=== PATIENT | female | born 1930 | race Caucasian/White ===

== ENCOUNTER → 2016-08-26 | Day surgery (SDC) | payer MEDICARE, BC ==
[~2016-08-26] MED LIST: ALOE1CAP PO; ALPH1CAP PO; AMLO2.5T PO; APIX5TAB PO; BENA10TA PO; CALC500T42 PO; CITA10TA4 PO; GLUC100017 PO; GLUCTAB PO; IOHEXOL 180 MG/ML 20 ML VIAL (for RAD DIAG) EPIDURAL ONE; L-ME1CAP2 PO; LIDOCAINE HCL 1% PF 30 ML VIAL EPI ONE; NITR0.4S SL; OMEGCAP19 PO; PROB1TAB PO; PROP10TA6 PO; PROP150T PO; PROPOFOL 200 MG/20 ML AMP IV ONE; PROV10TA PO; TRIAMCINOLONE ACETONIDE 40 MG/ML VIAL NB ONE; VITA100018 PO; VITA10007 PO; ZINC50TA PO; ZOCO40TA PO
--- NOTE | 2016-08-27 09:32 | M6 ---
cc: ZORAIDA MEJIA M.D. DATE 08/26/2016 DATE OF 1930 PROCEDURE Fluoroscopically guided left L3-4 and left L4-5 transforaminal epidural steroid injection. History and physical was completed and signed. Consent was signed. Procedure site was marked. Medications were listed and reconciled. Pain score was recorded. Allergies were noted. Time out was taken. Fluoroscopy time was recorded where applicable. Sedation was administered or directed by Dr. Mejia. The patient was given oxygen. The patient was monitored by a registered nurse. Total procedure time was greater than 15 minutes. PROCEDURE NOTE An IV was started. Blood pressure cuff, pulse oximeter and EKG were applied. The patient was placed in the prone position on a Reg table, sedated with small amounts of Versed and propofol titrated to effect. Vital signs were monitored and remained stable throughout the procedure. The patient remained responsive throughout the procedure. The lumbar area was scrubbed with antimicrobial solution, prepped with 10% Betadine solution, and draped with sterile drapes. Fluoroscopy was used in both the AP and lateral projections to clearly visualize the left L3-4 and left L4-5 neural foramen. Then separate sterile 22 gauge, 3 1/2-inch Chiba needles were advanced under fluoroscopic guidance into the dorsal-most aspect of each foramen. There was negative aspiration for blood or CSF. There were no reported paresthesias by the patient. There was no washout of 2 mL of Omnipaque. Then after waiting approximately 60 seconds, the patient was slowly given 3 mL of 1% Xylocaine, 3 mL of Omnipaque and 40 mg of Kenalog at each location. W. Heriberto Mejia MD [facility] /11:05 AM /9:21 AM
== END | disposition home or self-care (01) ==
LOC: PHSDC 09:11
PROVIDERS: ATTEND Pain Medicine Interventional Pain Medicine
DX: M25.552 Pain in left hip (principal)
CPT/HCPCS: 64483; 64484; 99152; J3301; Q9965